=== PATIENT | male | born 1995 | race Caucasian/White ===

== ENCOUNTER 2020-10-24 14:23 | Emergency (ER) | payer OTHER, MEDICAID, SELFPAY ==
[2020-10-24] VITALS (9 sets, daily range): BP systolic 116–131; BP diastolic 66–79; PULSE 18–90; RESP 13–22; TEMP 37.2; O2SAT 98–100; BMI 35.2
--- NOTE | 2020-10-24 14:59 | DI.RAD.S_ITS ---
PROCEDURE: XR CHEST 2V INDICATIONS: chest pain x4 days TECHNIQUE: 2 views of the chest were acquired. COMPARISON: None. FINDINGS: Surgical changes and devices: None. Lungs and pleura: Lungs are clear. No pleural effusions or pneumothorax. Mediastinum: Mediastinal contours are normal. Heart size is normal. Bones and chest wall: No suspicious bony abnormalities. Soft tissues appear unremarkable. IMPRESSION: No evidence acute pulmonary process. Dictated by: Justin Bowen M.D. on 10/24/2020 at 15:42 Approved by: Justin Bowen M.D. on 10/24/2020 at 15:42
[2020-10-24 15:06] LABS: Add Manual Diff / Slide Review NO; Basophils Absolute Auto 100 /uL (0-100); Basophils Percent Auto 0.8 % (0-2); Eosinophils Absolute Auto 200 /uL (0-450); Eosinophils Percent Auto 2.3 % (2-4); Hematocrit 46.4 % (41-53); Hemoglobin 15.6 g/dL (13.5-17.5); Lymphocytes Absolute Auto 2100 /uL (1100-4500); Lymphocytes Percent Auto 24.4 % (25-40); Mean Corpuscular HGB Conc 33.5 % (30-36); Mean Corpuscular Hemoglobin 29.8 PG (26-34); Mean Corpuscular Volume 88.9 fL (80-100); Monocytes Absolute Auto 900 /uL (0-900); Monocytes Percent Auto 9.9 % (3-14); Neutrophils Absolute Auto 5400 /uL (1500-7000); Neutrophils Percent Auto 62.6 % (50-75); Platelet Count 183 X10^3/uL (150-400); Red Blood Cell Count 5.22 X10^6/uL (4.5-5.9); Red Cell Distribution Width 13.6 % (11.6-14.8); White Blood Cell Count 8.6 X10^3/uL (4.5-11.0)
[2020-10-24 15:07] LABS: INR 1.1 (0.9-1.3); Prothrombin Time 12.3 SECONDS (10.1-12.7)
[2020-10-24] MEDS: KETOROLAC 60 MG/2 ML VIAL 15 MG IV (15:08)
--- NOTE | 2020-10-24 15:08 | ED.CHESTPAIN ---
HPI - Chest Pain <BALTA Gamble - Last Filed: 10/24/20 17:15> General Chief Complaint: Chest Pain Stated Complaint: CHEST PAIN, STARTED 4 DAYS AGO Time Seen by Provider: 10/24/20 14:36 Source: patient Mode of arrival: Ambulatory Limitations: no limitations History of Present Illness HPI narrative: This is a 25-year-old male, nonsmoker, who has no pertinent medical history presents to ED with chief complain of chest pain. He reports pain started 4-5 days ago in bilateral chest while he was playing video game. He reports associated symptoms as cough around the onset of chest pain. Now cough has been resolved. Last 2 days pain is located in left chest only. Pain worsens when patient sits up and stretch out chest. Pain also increases with deep inhalation and exhalation. He describes pain as tightness during onset of the pain but now it is sharp with movement. Patient denies trauma to chest or falls. Patient denies lifting heavy objects recently. Patient has history of occasional acid reflux but this feels different. Patient denies history of blood clots or leg pain or swelling. Patient denies recent surgery or prolonged bed rest. He denies family history of cardiac disease. Patient denies fever, chills, nausea or vomiting. Related Data Previous Rx's Medication Instructions Recorded methylprednisolone 4 mg PO QDAY #1 pac 06/15/17 naproxen [Naprosyn] 500 mg PO BID #60 tab 06/15/17 Allergies Allergy/AdvReac Type Severity Reaction Status Date / Time No Known Allergies Allergy Uncoded 10/24/20 14:34 Patient History <BALTA Gamble - Last Filed: 10/24/20 17:15> Social History Smoking Status: Never smoker Smoking Status: Never smoker Substance Use Type: marijuana Exam <BALTA Gamble - Last Filed: 10/24/20 17:15> Initial Vital Signs Initial Vital Signs: Vital Signs Temperature 98.9 F 10/24/20 14:29 Pulse Rate 90 10/24/20 14:29 Respiratory Rate 16 10/24/20 14:29 Blood Pressure 125/70 10/24/20 14:29 Pulse Oximetry 98 10/24/20 14:29 <Marlen Alfaro DO - Last Filed: 10/25/20 07:29> Initial Vital Signs Initial Vital Signs: Vital Signs Temperature 98.9 F 10/24/20 14:29 Pulse Rate 90 10/24/20 14:29 Respiratory Rate 16 10/24/20 14:29 Blood Pressure 125/70 10/24/20 14:29 Pulse Oximetry 98 10/24/20 14:29 Scores <BALTA Gamble - Last Filed: 10/24/20 17:15> HEART Score Heart Score history: Slightly Suspicious Heart Score EKG: Normal Heart Score Age: < 45 years old Heart Score risk factors: No known risk factors Heart Score troponin: < or = to normal limit Heart Score Total: 0 PERC Score Age greater than or equal to 50 years: No Heart rate greater than or equal to 100 bpm: No Room Air O2 Sat less than 95%: No Unilateral leg swelling: No Recent trauma or surgery: No Hemoptysis: No Prior PE or DVT: No Hormone Use: No Total PERC Score: 0 Wells' Criteria for PE Clinical signs and symptoms of DVT: No PE is #1 Dx or equally likely: No Heart rate > 100: No Immobilization at least 3 days or surg in previous 4 weeks: No History of PE or DVT: No Hemoptysis: No Malignancy w/Treatment within 6 months or palliative: No Wells' PE Score total: 0 Course <BALTA Gamble - Last Filed: 10/24/20 17:15> Orders Ordered: Discontinued Medications Hydromorphone HCl (Hydromorphone 0.5 Mg Inj) 0.5 mg IV NOW ONE Stop: 10/24/20 16:23 Last Admin: 10/24/20 16:37 Dose: 0.5 mg Documented by: EBEN Ketorolac Tromethamine (Ketorolac 60 Mg/2 Ml Vial) 15 mg IV NOW ONE Stop: 10/24/20 15:00 Last Admin: 10/24/20 15:08 Dose: 15 mg Documented by: EBEN Vital Signs Vital signs: Vital Signs - 8 hr 10/24/20 14:29 10/24/20 14:30 10/24/20 14:31 Temperature 98.9 F Pulse Rate 90 90 Respiratory Rate 16 15 Blood Pressure 125/70 125/70 Pulse Oximetry 98 98 10/24/20 15:00 10/24/20 15:59 10/24/20 16:00 Temperature Pulse Rate 76 79 67 Respiratory Rate 15 22 14 Blood Pressure 116/66 128/71 Pulse Oximetry 98 98 100 10/24/20 16:30 10/24/20 16:31 10/24/20 17:02 Temperature Pulse Rate 67 71 18 L Respiratory Rate 13 17 18 Blood Pressure 126/68 131/79 Pulse Oximetry 99 99 99 <Marlen Alfaro DO - Last Filed: 10/25/20 07:29> Orders Ordered: Discontinued Medications Hydromorphone HCl (Hydromorphone 0.5 Mg Inj) 0.5 mg IV NOW ONE Stop: 10/24/20 16:23 Last Admin: 10/24/20 16:37 Dose: 0.5 mg Documented by: MMINOR Ketorolac Tromethamine (Ketorolac 60 Mg/2 Ml Vial) 15 mg IV NOW ONE Stop: 10/24/20 15:00 Last Admin: 10/24/20 15:08 Dose: 15 mg Documented by: MMINOR Vital Signs Vital signs: Vital Signs - 8 hr 10/24/20 14:29 10/24/20 14:30 10/24/20 14:31 Temperature 98.9 F Pulse Rate 90 90 Respiratory Rate 16 15 Blood Pressure 125/70 125/70 Pulse Oximetry 98 98 10/24/20 15:00 10/24/20 15:59 10/24/20 16:00 Temperature Pulse Rate 76 79 67 Respiratory Rate 15 22 14 Blood Pressure 116/66 128/71 Pulse Oximetry 98 98 100 10/24/20 16:30 10/24/20 16:31 10/24/20 17:02 Temperature Pulse Rate 67 71 18 L Respiratory Rate 13 17 18 Blood Pressure 126/68 131/79 Pulse Oximetry 99 99 99 MDM - Chest Pain <BALTA Gamble - Last Filed: 10/24/20 17:15> Differential Diagnosis Differential diagnosis: Likely pneumothorax, atypical chest pain, costochondritis and other (ACS, pneumonia, GERD, pleursy, pulmonary embolism, pancreatitis) Medical Records Data Attestation: I reviewed the patient's medical records. Lab Data Attestation: I reviewed the patient's lab results. Result diagrams: 10/24/20 14:42 10/24/20 14:42 Labs: Lab Results 12/18/20 12/18/20 12/18/20 Range/Units 14:42 14:42 14:42 WBC 8.6 (4.5-11.0) X10^3/uL RBC 5.22 (4.5-5.9) X10^6/uL Hgb 15.6 (13.5-17.5) g/dL Hct 46.4 (41-53) % MCV 88.9 (80-100) fL MCH 29.8 (26-34) PG MCHC 33.5 (30-36) % RDW 13.6 (11.6-14.8) % Plt Count 183 (150-400) X10^3/uL Neut % (Auto) 62.6 (50-75) % Lymph % (Auto) 24.4 L (25-40) % [place] % (Auto) 9.9 (3-14) % Eos % (Auto) 2.3 (2-4) % Baso % (Auto) 0.8 (0-2) % Neut # (Auto) 5400 (7543-2485) /uL Lymph # (Auto) 2100 (9270-8350) /uL [place] # (Auto) 900 (0-900) /uL Eos # (Auto) 200 (0-450) /uL Baso # (Auto) 100 (0-100) /uL PT 12.3 (10.1-12.7) SECONDS INR 1.1 (0.9-1.3) APTT 34 (26.4-36.2) SECONDS Sodium 142 (137-145) mmol/L Potassium 3.7 (3.4-5.1) mmol/L Chloride 106 (98-107) mmol/L Carbon Dioxide 27 (22-32) mmol/L BUN 12 (9-20) mg/dL Creatinine 0.82 (0.66-1.25) mg/dL Estimated GFR > 60.0 (>60) mL/min BUN/Creatinine Ratio 14.6 (6-22) Glucose 107 H (70-100) mg/dL Calcium 9.6 (8.4-10.2) mg/dL Total Bilirubin 1.0 (0.2-1.3) mg/dL AST 62 H (17-59) IU/L ALT 87 H (<50) IU/L Alkaline Phosphatase 89 (38-126) U/L Total Creatine Kinase 128 (55-170) U/L CK-MB (CK-2) 0.87 (<2.37) ng/mL CK-MB (CK-2) Rel Index 0.7 L (1.5-5.0) % Troponin I < 0.012 (0.01-0.034) ng/mL Total Protein 9.1 H (6.3-8.2) g/dL Albumin 5.2 H (3.5-5.0) g/dL Globulin 3.9 (1.7-4.1) g/dL Albumin/Globulin Ratio 1.3 (1.0-2.8) Lipase 38 (23-300) U/L Imaging Data Chest x-ray: Radiologist's Impression: [address] [id number] ReportSigned Patient: Shashank Carey DMR#: [id number]: 1995Acct:[id number]/Sex: 25 / MDate of Service: 10/24/20Loc: EDAccession Number: [id number] Procedure: XR chest 2V Ordering Provider: Bj Curtis PROCEDURE: XR CHEST 2V INDICATIONS: chest pain x4 days TECHNIQUE: 2 views of the chest were acquired. COMPARISON: None. FINDINGS: Surgical changes and devices: None. Lungs and pleura: Lungs are clear. No pleural effusions or pneumothorax. Mediastinum: Mediastinal contours are normal. Heart size is normal. Bones and chest wall: No suspicious bony abnormalities. Soft tissues appear unremarkable. IMPRESSION: No evidence acute pulmonary process. Dictated by: Justin Bowen M.D. on 10/24/2020 at 15:42 Approved by: Justin Bowen M.D. on 10/24/2020 at 15:42 ECG Data Attestation: I personally reviewed and interpreted this ECG as follows: Prior ECG tracings: not available for review Interpretation: Sinus rhythm with sinus arrhythmia rate at 85. Normal [place]. MA interval 140, QRS duration 100, QT/QTC 362/[address] changes[address] [facility] Narrative Medical decision making narrative: This is a 25-year-old male who presents to ED with chest pain for last 4-5 days which started on bilateral chest with cough and last 2 days pain located in left chest only. Coughing has resolved after 1 day of duration. Patient denies constitutional symptoms. EKG was sinus rhythm rate at [address] changes. Patient denies other associated symptoms for chest pain. Although patient has pleuritic like chest pain but Heart score, wells criteria for PE, PERC scores all 0. Cardiac enzymes were negative. No repeat cardiac enzyme was done since pain was ongoing and constant for last 2 days. No leukocytosis. Stable H&H. Electrolytes were unremarkable but very mildly elevated AST and ALT of sixty-two and 87 with normal bilirubin. Lipase normal. Chest x-ray was negative for pleural effusion, pneumothorax, or pneumonia. Considered costal chondritis, pleuritis, and pericarditis. Medicated patient with Toradol without much improvement. Chest pain was not reproducible by palpation. Patient given a small dose of narcotic medication for pain management. Findings were shared with patient and significant other that chest pain is likely from cardiac origin and at this time will treat patient as atypical chest pain. Return precautions were discussed with patient and significant other and advised to inch primary care physician and to follow-up with elevation in LFTs. Patient and significant other verbalized understanding in agreement with treatment plan. <Marlen Alfaro, DO - Last Filed: 10/25/20 07:29> Lab Data Labs: Lab Results 10/24/20 10/24/20 10/24/20 Range/Units 14:42 14:42 14:42 WBC 8.6 (4.5-11.0) X10^3/uL RBC 5.22 (4.5-5.9) X10^6/uL Hgb 15.6 (13.5-17.5) g/dL Hct 46.4 (41-53) % MCV 88.9 (80-100) fL MCH 29.8 (26-34) PG MCHC 33.5 (30-36) % RDW 13.6 (11.6-14.8) % Plt Count 183 (150-400) X10^3/uL Neut % (Auto) 62.6 (50-75) % Lymph % (Auto) 24.4 L (25-40) % [place] % (Auto) 9.9 (3-14) % Eos % (Auto) 2.3 (2-4) % Baso % (Auto) 0.8 (0-2) % Neut # (Auto) 5400 (9964-4010) /uL Lymph # (Auto) 2100 (8557-7104) /uL [place] # (Auto) 900 (0-900) /uL Eos # (Auto) 200 (0-450) /uL Baso # (Auto) 100 (0-100) /uL PT 12.3 (10.1-12.7) SECONDS INR 1.1 (0.9-1.3) APTT 34 (26.4-36.2) SECONDS Sodium 142 (137-145) mmol/L Potassium 3.7 (3.4-5.1) mmol/L Chloride 106 (98-107) mmol/L Carbon Dioxide 27 (22-32) mmol/L BUN 12 (9-20) mg/dL Creatinine 0.82 (0.66-1.25) mg/dL Estimated GFR > 60.0 (>60) mL/min BUN/Creatinine Ratio 14.6 (6-22) Glucose 107 H (70-100) mg/dL Calcium 9.6 (8.4-10.2) mg/dL Total Bilirubin 1.0 (0.2-1.3) mg/dL AST 62 H (17-59) IU/L ALT 87 H (<50) IU/L Alkaline Phosphatase 89 (38-126) U/L Total Creatine Kinase 128 (55-170) U/L CK-MB (CK-2) 0.87 (<2.37) ng/mL CK-MB (CK-2) Rel Index 0.7 L (1.5-5.0) % Troponin I < 0.012 (0.01-0.034) ng/mL Total Protein 9.1 H (6.3-8.2) g/dL Albumin 5.2 H (3.5-5.0) g/dL Globulin 3.9 (1.7-4.1) g/dL Albumin/Globulin Ratio 1.3 (1.0-2.8) Lipase 38 (23-300) U/L Discharge Plan Departure Patient Disposition: Home Clinical Impression: Atypical chest pain Instructions: DI for Atypical Chest Pain Activity Restrictions/Additional Instructions: You have been diagnosed with [atypical chest pain. Chest x-ray and labs are assuring. Negative chest x-ray for pneumonia, pneumothorax or other acute concerns. Negative cardiac enzymes. Mild elevation in AST and ALT which should be followed up.]. What to do: *Take your medications as directed. You can take [id number] Tylenol and or Motrin as needed for discomfort. *Follow up with your primary care provider in 2-3 days, call for an appointment. Let them know you were seen in the ED and that we asked you to be seen in follow up. *Return to ED if you have any new, worsening, or concerning symptoms, such as [worsening or different chest pain, breathing difficulty, fever, unable to tolerate fluids, dizziness, near-syncope or any acute concerns]. Prescriptions: No Action methylprednisolone 4 MG tablets,dose pack 4 mg PO QDAY Qty: 1 RF: 0 naproxen [Naprosyn] 500 MG tablet 500 mg PO BID Qty: 60 RF: 1 Referrals: [facility] [Outside] Stand Alone Forms: Work Release Note <Marlen Alfaro DO - Last Filed: 10/25/20 07:29> Cosign ED Attending Jimmyature Attestation: I was immediately available in the department for consultation. Documentation has been reviewed. I agree with assessment and plan.
[2020-10-24 15:10] LABS: PTT Partial Thromboplastin Tim 34 SECONDS (26.4-36.2)
[2020-10-24 15:12] LABS: Alanine Aminotransferase 87 IU/L (<50); Albumin 5.2 g/dL (3.5-5.0); Albumin Globulin Ratio 1.3 (1.0-2.8); Alkaline Phosphatase 89 U/L (38-126); Aspartate Aminotransferase 62 IU/L (17-59); BUN Creatinine Ratio 14.6 (6-22); Blood Urea Nitrogen 12 mg/dL (9-20); Calcium 9.6 mg/dL (8.4-10.2); Carbon Dioxide 27 mmol/L (22-32); Chloride 106 mmol/L (98-107); Creatine Kinase 128 U/L (55-170); Estimated Glomerular Filt Rate > 60.0 mL/min (>60); Globulin 3.9 g/dL (1.7-4.1); Glucose 107 mg/dL (70-100); HEMOLYSIS 22 (0-50); Lipase 38 U/L (23-300); Potassium 3.7 mmol/L (3.4-5.1); Sodium 142 mmol/L (137-145); Total Protein 9.1 g/dL (6.3-8.2)
[2020-10-24 15:24] LABS: Troponin I < 0.012 ng/mL (0.01-0.034)
[2020-10-24 15:27] LABS: CKMB % Relative Index 0.7 % (1.5-5.0); Creatine Kinase MB 0.87 ng/mL (<2.37)
[2020-10-24] MEDS: HYDROMORPHONE 0.5 MG INJ IV (16:37)
== END 2020-10-24 17:03 | disposition home or self-care (01) ==
PROVIDERS: Emergency Provider Nurse Practitioner Family
DX: R07.89 Other chest pain (principal); R05 Cough
CPT/HCPCS: 36415; 71046; 80053; 82550; 82553; 83690; 84484; 85025; 85610; 85730; 93005; 93010; 96374; 96375; 99283; J1170; J1885

== ENCOUNTER 2021-06-16 12:20 | Emergency (ER) | payer OTHER, MEDICAID, SELFPAY ==
[2021-06-16 12:30] VITALS: BP 139/96; PULSE 72; RESP 18; TEMP 36.7; O2SAT 98; BMI 34.7
--- NOTE | 2021-06-16 12:44 | PC.NURSE ---
2 days ago pt was stretching with his hands up when he felt a pop left shoulder/clavical area. Noted swelling left upper chest area on palpation. Lungs clear.
--- NOTE | 2021-06-16 13:12 | DI.RAD.S_ITS ---
PROCEDURE: XR SHOULDER LT MIN 2V INDICATIONS: shoulder pain TECHNIQUE: 3 views of the shoulder were acquired. COMPARISON: None. FINDINGS: Bones: No fractures or dislocations. No suspicious bony lesions. Visualized ribs appear intact. Soft tissues: No suspicious soft tissue calcifications. IMPRESSION: 1. No acute bony abnormality. Dictated by: Fred Foley M.D. on 06/16/2021 at 13:47 Approved by: Fred Foley M.D. on 06/16/2021 at 13:55
--- NOTE | 2021-06-16 13:20 | ED_ITS ---
HPI - General Adult <XENA Desai-BC - Last Filed: 06/16/21 15:00> General Chief complaint: Extremity Injury, Upper Stated complaint: left shoulder pain/hurts to turn neck Time Seen by Provider: 06/16/21 12:56 Source: patient Mode of arrival: Ambulatory Limitations: no limitations History of Present Illness HPI narrative: The patient is a 26-year-old male nonsmoker who denies pertinent medical history presents with a chief complaint of left shoulder pain. He states he woke up yesterday morning, stretch with his arms overhead and felt a tugging popping sensation. He states that most of his pain is in the back of his shoulder blade. He is right-hand dominant. He has been using acetaminophen and ibuprofen at home for pain, but not taken anything. He states that he is here today because he is increasingly stiff and is difficult to get up in the morning. He denies any fall or specific injury and stretching his arm above his head. He denies any previous injuries to his left shoulder. Related Data Previous Rx's Medication Instructions Recorded methylprednisolone 4 mg tablets in 4 mg PO QDAY #1 pac 06/15/17 a dose pack naproxen 500 mg tablet (Naprosyn) 500 mg PO BID #60 tab 06/15/17 cyclobenzaprine 10 mg tablet 10 mg PO TID PRN #20 tab 06/16/21 ketorolac 10 mg tablet 10 mg PO TID PRN #14 tab 06/16/21 lidocaine 5 % topical patch 1 patch TOPICAL DAILY PRN #15 ea 06/16/21 Allergies Allergy/AdvReac Type Severity Reaction Status Date / Time No Known Allergies Allergy Uncoded 10/24/20 14:34 Review of Systems <LARISSA Desai - Last Filed: 06/16/21 15:00> Review of Systems Narrative: GENERAL: Denies chills, fatigue, malaise, fever, sweats. HEENT: Denies sinus pain, ear pain, sore throat, difficulty swallowing, dizziness. RESPIRATORY: Denies dyspnea, cough, wheezing, hemoptysis, sputum. CARDIOVASCULAR: Denies chest pain, palpitations, orthopnea, edema, GASTROINTESTINAL: Denies nausea, vomiting, abdominal pain, diarrhea, constipation, melena. : Denies dysuria, frequency, incontinence, hematuria, urinary retention. MUSCULOSKELETAL: See HPI SKIN: Denies rash, skin lesions, or other NEUROLOGIC: Denies weakness, headache, numbness, change in speech, confusion, seizures, incoordination. PSYCHIATRIC: No concerning psychosocial issues. 12 point review of systems is negative except for those stated above Patient History <LARISSA Desai - Last Filed: 06/16/21 15:00> Social History Smoking Status: Never smoker Smoking Status: Never smoker Substance Use Type: marijuana Exam <LARISSA Desai - Last Filed: 06/16/21 15:00> Narrative Exam Narrative: GENERAL: This is a well-nourished, well-developed patient, no acute distress HEAD: Atraumatic. Normocephalic. No temporal or scalp tenderness. EYES: Pupils equal round and reactive. Extraocular motions intact. No scleral icterus. No injection or drainage. ENT: Nose without bleeding, purulent drainage or septal hematoma. Wearing a mask Airway patent. NECK: Trachea midline. No JVD or lymphadenopathy. Supple, nontender, no meningeal signs. CARDIOVASCULAR: Regular rate and rhythm without murmurs, gallops, or rubs. RESPIRATORY: Clear to auscultation. Breath sounds equal bilaterally. No wheezes, rales, or rhonchi. EXTREMITIES: Had diffuse pain to palpation noted left shoulder, medial to left scapula a full range of motion noted left shoulder. Positive radial pulse left hand. negative empty can left arm. BACK: Nontender without deformity or crepitance. No flank tenderness. NEURO: AOx3. SKIN: No rash or erythema. Initial Vital Signs Initial Vital Signs: Vital Signs Temperature 98.0 F 06/16/21 12:30 Pulse Rate 72 06/16/21 12:30 Respiratory Rate 18 06/16/21 12:30 Blood Pressure 139/96 H 06/16/21 12:30 Pulse Oximetry 98 06/16/21 12:30 <Warren Cheng DO - Last Filed: 06/16/21 16:57> Initial Vital Signs Initial Vital Signs: Vital Signs Temperature 98.0 F 06/16/21 12:30 Pulse Rate 72 06/16/21 12:30 Respiratory Rate 18 06/16/21 12:30 Blood Pressure 139/96 H 06/16/21 12:30 Pulse Oximetry 98 06/16/21 12:30 Scores <LARISSA Desai - Last Filed: 06/16/21 15:00> GCS Antonette coma scale eye opening: Spontaneous [place] coma scale verbal response: Orientated [place] coma scale motor response: Obey commands Antonette coma scale total score: 15 <Warren Cheng DO - Last Filed: 06/16/21 16:57> GCS Antonette coma scale total score: 15 Course <LARISSA Desai - Last Filed: 06/16/21 15:00> Orders Ordered: ED Orders 06/16/21 13:12 XR shoulder LT min 2V Stat Discontinued Medications Cyclobenzaprine HCl (Cyclobenzaprine 10 Mg Tablet) 10 mg PO NOW ONE Stop: 06/16/21 13:13 Last Admin: 06/16/21 13:35 Dose: 10 mg Documented by: JENA Ketorolac Tromethamine (Ketorolac 30 Mg/Ml Vial) 30 mg IM NOW ONE Stop: 06/16/21 13:13 Last Admin: 06/16/21 13:35 Dose: 30 mg Documented by: JENA Lidocaine (Lidocaine Patch 1 Each Adh..Patch) 1 each TOP NOW ONE Stop: 06/16/21 13:13 Last Admin: 06/16/21 13:35 Dose: 1 each Documented by: JENA Vital Signs Vital signs: Vital Signs - 8 hr 06/16/21 12:30 06/16/21 14:22 Temperature 98.0 F Pulse Rate 72 79 Respiratory Rate 18 16 Blood Pressure 139/96 H 123/81 Pulse Oximetry 98 100 <Warren Cheng DO - Last Filed: 06/16/21 16:57> Orders Ordered: ED Orders 06/16/21 13:12 XR shoulder LT min 2V Stat Discontinued Medications Cyclobenzaprine HCl (Cyclobenzaprine 10 Mg Tablet) 10 mg PO NOW ONE Stop: 06/16/21 13:13 Last Admin: 06/16/21 13:35 Dose: 10 mg Documented by: JENA Ketorolac Tromethamine (Ketorolac 30 Mg/Ml Vial) 30 mg IM NOW ONE Stop: 06/16/21 13:13 Last Admin: 06/16/21 13:35 Dose: 30 mg Documented by: JENA Lidocaine (Lidocaine Patch 1 Each Adh..Patch) 1 each TOP NOW ONE Stop: 06/16/21 13:13 Last Admin: 06/16/21 13:35 Dose: 1 each Documented by: JENA Vital Signs Vital signs: Vital Signs - 8 hr 06/16/21 12:30 06/16/21 14:22 Temperature 98.0 F Pulse Rate 72 79 Respiratory Rate 18 16 Blood Pressure 139/96 H 123/81 Pulse Oximetry 98 100 Medical Decision Making <LARISSA Desai - Last Filed: 06/16/21 15:00> Imaging Data Extremity x-ray #1: Radiologist's Impression: [address] [place] [id number] ReportSigned Patient: Shashank Carey DMR#: [id number]: 1995Acct:[id number]/Sex: 26 / MDate of Service: 06/16/21Loc: EDAccession Number: [id number] Procedure: XR shoulder LT min 2V Ordering Provider: Thelma Guerra PROCEDURE: XR SHOULDER LT MIN 2V INDICATIONS: shoulder pain TECHNIQUE: 3 views of the shoulder were acquired. COMPARISON: None. FINDINGS: Bones: No fractures or dislocations. No suspicious bony lesions. Visualized ribs appear intact. Soft tissues: No suspicious soft tissue calcifications. IMPRESSION: 1. No acute bony abnormality. Dictated by: Fred Foley M.D. on 06/16/2021 at 13:47 Approved by: Fred Foley M.D. on 06/16/2021 at 13:55 MDM Narrative Medical decision making narrative: The patient is a 26-year-old male who presents with a chief complaint of left shoulder pain after stretching above his head a few days ago. X-ray is no acute findings. He is neurovascular intact, range of motion is reassuring. Likely musculoskeletal pain. Prescriptions provided. 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 Encouraged follow-up with primary care provider gave contact information the [facility] health forest resources professor. Encouraged at length follow up with them as well as emergency department return precautions. Discharge Plan Departure Patient Disposition: Home Clinical Impression: Left shoulder pain Qualifiers: Chronicity: acute Qualified Code(s): M25.512 - Pain in left shoulder Instructions: How To Perform RICE (Rest, Ice, Compress, Elevate), DI for Shoulder Pain Activity Restrictions/Additional Instructions: Thank you for trusting us with your care today. As I discussed, your x-ray shows no acute fracture. This does not rule out a soft tissue injury such as a ligament or tendon injury. It is important that you follow up with primary care provider, especially if worsening or no improvement. There can be fractures that did not show up on initial x-ray. I sent 3 prescriptions to [facility] [place]. I sent the numbing pain patches, which can stay on your skin for 12 hours, ice and ketorolac or Toradol which is an NSAID. Do not combine this with any other NSAIDs such as ibuprofen Aleve etcetera. I suggest taking this with food. I also sent cyclobenzaprine which is a muscle relaxer. Please be aware that this can be sedating. Do not take and drive or combine with alcohol. Please follow-up with primary care provider. I have given you contact information to the [facility] forest resources professor, who can help you identify PCP in her area. Please come back to the emergency department for any acute concerns. Prescriptions: New ketorolac 10 mg tablet 10 mg PO TID PRN (Reason: pain) Qty: 14 RF: 0 cyclobenzaprine 10 mg tablet 10 mg PO TID PRN (Reason: muscle spasm) Qty: 20 RF: 0 lidocaine 5 % adhesive patch,medicated 1 patch topical DAILY PRN (Reason: pain) Qty: 15 RF: 0 No Action methylprednisolone 4 MG tablets,dose pack 4 mg PO QDAY Qty: 1 RF: 0 naproxen [Naprosyn] 500 MG tablet 500 mg PO BID Qty: 60 RF: 1 Referrals: [facility] [Outside] Stand Alone Forms: Work Release Note <Warren Cheng, DO - Last Filed: 06/16/21 16:57> Cosign ED Attending Cosignature Attestation: Dr Cheng Co-Sign Statement: I was available for consultation during this patient's emergency department visit. This chart is signed by myself for administrative purposes only. I did not have direct contact with this patient during this visit. They were seen independently by the APC.
[2021-06-16] MEDS: CYCLOBENZAPRINE 10 MG TABLET PO (13:35)
[2021-06-16] MEDS: LIDOCAINE PATCH 1 EACH ADH..PATCH TOP (13:35)
[2021-06-16] MEDS: KETOROLAC 30 MG/ML VIAL IM (13:35)
[2021-06-16 14:22] VITALS: BP 123/81; PULSE 79; RESP 16; O2SAT 100
--- NOTE | 2021-06-24 09:56 | PC.NURSE ---
patient called stating his work release was not on his d/c paperwork. pt asked if we could give it to Lachelle Bradley, his mother in law who works here. i printed it and placed it in an envelope with her name on it at the ED reg. as I told him.
== END 2021-06-16 14:40 | disposition home or self-care (01) ==
PROVIDERS: Emergency Provider Nurse Practitioner Family
DX: M25.512 Pain in left shoulder (principal)
CPT/HCPCS: 73030; 96372; 99283; 99284; J1885

== ENCOUNTER 2025-09-17 08:11 | Emergency (ER) | payer MEDICAID, SELFPAY ==
--- NOTE | 2025-09-17 08:19 | ED.GENADULT ---
HPI - General Adult General Chief complaint: Upper Respiratory Symptoms Stated complaint: swollen uvula Time Seen by Provider: 09/17/25 08:15 History of Present Illness HPI narrative: Is a 30-year-old male complaining of a sore throat. He has had it for about 4 days. He is previously healthy no shortness of breath has not noted any fevers. Today he also noted that his uvula was swollen. Patient states he is not allergic to anything and not take any regular medications. Related Data Previous Rx's ?Medication ?Instructions ?Recorded amoxicillin 875 mg-potassium 1 tab PO BID #20 tabs 09/17/25 clavulanate 125 mg tablet Allergies Allergy/AdvReac Type Severity Reaction Status Date / Time No Known Allergies Allergy Uncoded 07/15/21 11:55 Patient History Medical History (Updated 09/17/25 @ 09:29 by Elías Serrano MD) History of recurrent ear infection Strain of tendon of left rotator cuff Family history of hyperlipidemia Family History (Updated 07/23/21 @ 19:36 by Mary Hawkins) Father No problems noted. Mother Diabetes mellitus Hypertension Hyperlipidemia Grandfather Cancer Grandmother Stroke Grandfather Cancer Grandmother Cancer Lupus Social History Smoking Status: Never smoker Exam Narrative Exam Narrative: Well-appearing, in no distress. Relaxed posture. Voice is normal, no trismus no difficulty with secretions Uvula is inflamed and erythematous there is some deviation of the uvula to the left. There is fullness in the oropharynx on the right side, no visible abscess. Neck is supple without adenopathy Normal respiratory effort Initial Vital Signs Initial Vital Signs: Vital Signs Temperature 98.1 F 09/17/25 08:20 Pulse Rate 91 H 09/17/25 08:20 Respiratory Rate 16 09/17/25 08:20 Blood Pressure 141/81 H 09/17/25 08:20 Pulse Oximetry 98 09/17/25 08:20 Oxygen Delivery Method Room Air 09/17/25 08:20 Course Orders Ordered: ED Orders 09/17/25 08:43 Strep Grp A by PCR Rapid Stat 09/17/25 09:04 Strep Grp A by PCR Rapid Stat Discontinued Medications Dexamethasone (Dexamethasone 4 Mg/Ml Vial) 16 mg IV NOW ONE Stop: 09/17/25 08:18 Last Admin: 09/17/25 08:38 Dose: 16 mg Documented By: TONYA Ceftriaxone Sodium 2,000 mg/ (Sodium Chloride) 100 mls @ 200 mls/hr IV NOW ONE Stop: 09/17/25 08:18 Last Infusion: 09/17/25 09:23 Dose: Infused Documented By: Admin: 09/17/25 08:39 Dose: 200 mls/hr Documented By: TONYA Vital Signs Vital signs: Vital Signs - 8 hr 09/17/25 08:20 Temperature 98.1 F Pulse Rate 91 H Respiratory Rate 16 Blood Pressure 141/81 H Pulse Oximetry 98 Oxygen Delivery Method Room Air Medical Decision Making Lab Data Labs: Lab Results 09/17/25 Range/Units 08:43 Group A Strep (PCR) Negative (Negative) MDM Narrative Medical decision making narrative: 30-year-old male with throat pain and uvular swelling. There is some asymmetry and uvular shift his airway is intact. There does not appear to be a definite abscess he does not appear to be systemically ill I considered but do not suspect a deep space neck infection. He was treated with IV steroids and ceftriaxone in the emergency department. I started him on Augmentin recommended scheduled ibuprofen and acetaminophen as needed for pain indications for return to the emergency department and reviewed and he is referred to ENT Discharge Plan Departure Patient Disposition: Home Clinical Impression: Peritonsillar cellulitis Activity Restrictions/Additional Instructions: Today, we are treating him for an infection in your throat. We gave IV antibiotics and an IV steroid. Make sure you are getting adequate fluids take the antibiotics that I am prescribing for the full course. You can take ibuprofen 600 mg 3 times a day for pain I would do this regularly for the 1st couple of days. Additionally you can take acetaminophen (Tylenol) at usual [id number] doses as needed for pain. If you are having increasing pain difficulty breathing or other acute symptoms recheck in the emergency department. Prescriptions: New amoxicillin-pot clavulanate 875-125 mg tablet 1 tab PO BID Qty: 20 0RF Referrals: Selwyn Yañez MD [Physician, Ear, Nose, Throat] Grady Armstrong DO [Primary Care Provider, Family Practice] Stand Alone Forms: Patient Portal/API
[2025-09-17 08:20] VITALS: BP 141/81; PULSE 91; RESP 16; TEMP 36.7; O2SAT 98; BMI 38.0
[2025-09-17] MEDS: cefTRIAXone 2,000 MG in SODIUM CHLORIDE 0.9% 100 ML 200 MG IV (08:39)
[2025-09-17 09:01] LABS: Strep Grp A by PCR Rapid Negative (Negative)
== END 2025-09-17 09:41 | disposition home or self-care (01) ==
PROVIDERS: Emergency Provider Emergency Medicine; PCP Family Medicine
DX: J36 Peritonsillar abscess (principal)
CPT/HCPCS: 36415; 87651; 96365; 96375; 99284; J0696; J1100; J7050